=== PATIENT | male | born 1955 | race Caucasian/White ===

== ENCOUNTER 2023-12-09 18:17 | Emergency (ER) | payer OTHER ==
[~2023-12-09] VITALS: Ht 170.2 cm; Wt 65.8 kg
[2023-12-09] MEDS ORDERED: Bactrim Ds Tab1 EACH PO (19:43)
== END 2023-12-09 19:52 | disposition home or self-care (01) ==
LOC: ER 18:17
DX: L02.415 Cutaneous abscess of right lower limb (principal)
CPT/HCPCS: 99282